=== PATIENT | male | born 1980 | race Caucasian/White ===

== ENCOUNTER 2017-09-11 19:47 | Emergency (ER) | payer OTHER ==
[~2017-09-11] VITALS: Ht 180.3 cm; Wt 86.4 kg
[2017-09-11] MEDS ORDERED: VIGAMOX 0.60 DROP/3 LEFT EYE (21:46)
[2017-09-11 22:26] VITALS: BP 134/91
== END 2017-09-11 22:33 ==
LOC: EME 19:47
DX: T15.02XA Foreign body in cornea, left eye, initial encounter (principal); X58.XXXA Exposure to other specified factors, initial encounter; Y93.89 Activity, other specified; Z23 Encounter for immunization; Z87.891 Personal history of nicotine dependence; Z88.0 Allergy status to penicillin
CPT/HCPCS: 99281; 99284